=== PATIENT | male | born 1995 | race Caucasian/White ===

== ENCOUNTER 2017-11-05 18:13 | Emergency (ER) | payer OTHER ==
[~2017-11-05] VITALS: Ht 172.7 cm; Wt 58.7 kg
[~2017-11-05 18:13] MED LIST: ABI10 PO; FLUO10CA21 PO; KEFSUS PO; LOM2.5 PO; ONDA8TAB PO
[2017-11-05 18:33] VITALS: BP 117/79
--- NOTE | 2017-11-05 21:50 | NUR ---
PATIENT CALLED TO PUT ON BED, NO RESPONSE
--- NOTE | 2017-11-05 22:10 | NUR ---
CALLED FOR SECOND TIME NO RESPONSE
--- NOTE | 2017-11-05 22:20 | NUR ---
CALLED FOR THE THIRD TIME NO ANSWER, PATIENT LEFT WITHOUT BEING SEEN BY DR. MORENO. NO FURTHER CARE PROVIDED FOR PATIENT.
== END 2017-11-05 22:20 | disposition left against medical advice (07) ==
LOC: MED 18:13
DX: K92.0 Hematemesis (principal); Z53.21 Procedure and treatment not carried out due to patient leaving prior to being seen by health care provider
CPT/HCPCS: 71010; 99281

== ENCOUNTER 2020-07-13 19:28 | Emergency (ER) | payer OTHER ==
[~2020-07-13] VITALS: Ht 167.6 cm; Wt 63.5 kg
[2020-07-13 19:33] VITALS: BP 138/79
--- NOTE | 2020-07-13 19:37 | NUR ---
PT AMBUALTED TO BED 04 WITH STEADY GAIT.
--- NOTE | 2020-07-13 19:47 | NUR ---
25 Y/O MALE PRESENTS TO ER WITH C/O ABDOMINAL PAIN X 6 HRS. 7/10 PAIN. PT STATES HE BEGAN NAUSEA, VOMITING, AND DIARRHEA ABOUT 1300 TODAY. HE DENIES INGESTING ANY RANCID, OR SOUR FOOD, OR LIQUIDS. HE STATES HE JUST BEGAN HAVING LLQ PAIN THAT RADIATES TO ALL QUADRANTS. LAST VOMIT @ 1800, AND LAST DIARRHEA @1900. ALSO C/O CHILLS. DENIES SOB, COUGH, FEVER, HEADACHE. VSS, R/R EQUAL, AND UNLABORED, A&OX4. SIDE RAIL X1, BED IN LOW POSITION, WILL CONTINUE TO MONITOR. NKDA DENIES PMH
[2020-07-13] MEDS ORDERED: ONDANSETRON 4 MG/2 ML VIAL IVP ONE (19:50)
[2020-07-13] MEDS ORDERED: KETOROLAC 30 MG/ML VIAL IVP ONE (19:50)
[2020-07-13] MEDS ORDERED: NACL 0.9% 1,000 ML IV ONE (19:50)
--- NOTE | 2020-07-13 20:05 | NUR ---
Dr. Christy examining patient.
[2020-07-13 20:15] LABS: BASOPHILS # (AUTO) 0.1 K/uL (0.00-0.22); BASOPHILS % (AUTO) 0.4 % (0.0-2.0); EOSINOPHILS % (AUTO) 0.2 % (0.0-4.0); HEMATOCRIT 43.4 % (36-52); HEMOGLOBIN 14.5 g/dL (12.0-18.0); LYMPHOCYTES # (AUTO) 0.9 K/uL (2.0-11.5); LYMPHOCYTES % (AUTO) 6.4 % (20.5-51.1); MEAN CORPUSCULAR HEMOGLOBIN 31 pg (27-31); MEAN CORPUSCULAR HGB CONC 33 g/dL (33-37); MEAN CORPUSCULAR VOLUME 92.5 fL (80-94); MONOCYTES % (AUTO) 6.4 % (1.7-9.3); NEUTROPHILS # (AUTO) 12.8 K/uL (1.8-7.7); NEUTROPHILS % (AUTO) 86.6 % (42.2-75.2); PLATELET COUNT (AUTO) 202 K/uL (140-450); RED BLOOD CELL COUNT(AUTO) 4.69 MIL/uL (4.20-6.10); RED CELL DISTRIBUTION WIDTH 13.8 % (11.6-13.7); WHITE BLOOD COUNT (AUTO) 14.8 K/uL (4.8-10.8)
--- NOTE | 2020-07-13 20:29 | NUR ---
PT RETURN FROM XRAY
[2020-07-13 20:38] LABS: ALBUMIN 4.8 g/dL (3.4-5.0); ANION GAP 19.4 (8-16); CREATININE 0.8 mg/dL (0.6-1.3); POTASSIUM 3.4 mmol/L (3.5-5.1)
--- NOTE | 2020-07-13 20:43 | NUR ---
PT RESTING QUIETLY IN BED. PT STATES "I'M FEELING BETTER." R/R EQUAL, AND UNLABORED. VSS. SIDE RAIL X1, BED IN LOW POSIITON, WILL CONTINUE TO MONITOR.
[2020-07-13 22:20] VITALS: BP 138/79
== END 2020-07-13 21:59 | disposition home or self-care (01) ==
LOC: MED 19:28
DX: A08.4 Viral intestinal infection, unspecified (principal); R11.2 Nausea with vomiting, unspecified
CPT/HCPCS: 36415; 74022; 80053; 83690; 85025; 96374; 96375; 99284; J1885; J2405; J7030